=== PATIENT | male | born 1990 | race African-American/Black ===

== ENCOUNTER 2017-05-26 03:09 | Emergency (ER) | payer SELFPAY ==
[2017-05-26 04:01] VITALS: BP 142/77
== END 2017-05-26 04:31 | disposition other institution (70) ==
LOC: ED 03:09
DX: S80.211A Abrasion, right knee, initial encounter (principal); S09.90XA Unspecified injury of head, initial encounter; R10.9 Unspecified abdominal pain; W17.89XA Other fall from one level to another, initial encounter; Y93.39 Activity, other involving climbing, rappelling and jumping off; Y99.8 Other external cause status; Y92.89 Other specified places as the place of occurrence of the external cause
CPT/HCPCS: 36415; Q0092

== ENCOUNTER 2017-05-26 03:09 | Emergency (ER) | payer OTHER | END 2017-05-26 04:31 | disposition other institution (70) | LOC: ED 03:09 | DX: Z02.89 Encounter for other administrative examinations (principal); S80.211A Abrasion, right knee, initial encounter; R10.9 Unspecified abdominal pain; W17.89XA Other fall from one level to another, initial encounter; Y93.39 Activity, other involving climbing, rappelling and jumping off; Y99.8 Other external cause status; Y92.89 Other specified places as the place of occurrence of the external cause ==

== ENCOUNTER 2019-08-08 10:42 | Emergency (ER) | payer SELFPAY ==
[~2019-08-08] VITALS: Ht 170.2 cm; Wt 61.7 kg
[2019-08-08 11:02] VITALS: BP 149/94; Ht 170.2 cm; Wt 61.7 kg
== END 2019-08-08 14:00 | disposition left against medical advice (07) ==
LOC: ED 10:42
DX: M54.2 Cervicalgia (principal); R44.0 Auditory hallucinations
CPT/HCPCS: G0480